=== PATIENT | male | born 1960 | race Caucasian/White ===

== ENCOUNTER 2016-08-29 17:13 | Observation (INO) | payer OTHER ==
[2016-08-29] MEDS ORDERED: ceFAZolin 2 GM/DEXTROSE 100 ML IV ONE (18:00)
[2016-08-29] MEDS ORDERED: MIDAZOLAM 2 MG/2 ML VIAL ONE (18:22)
--- NOTE | 2016-08-29 18:26 | GHP ---
[f rep st] HISTORY AND PHYSICAL DATE OF ADMISSION: 08/29/2016 DATE OF EVALUATION: 08/29/2016 CHIEF COMPLAINT: Cholelithiasis. HISTORY OF PRESENT ILLNESS: The patient is a 56-year-old man, who had burning epigastric pain last n ight that radiated to the side. He was up most of the night. Nothing alleviated the pain. He prese nted to primary care today. An ultrasound was performed, which showed a stone impacted in the gallbl adder neck. He has not had emesis. He denies david-colored stools, jaundice, dark colored, or prurit us. PAST MEDICAL HISTORY: Hypertension. PAST SURGICAL HISTORY: Tonsillectomy, vasectomy. SOCIAL HISTORY: He denies tobacco use. FAMILY HISTORY: Crohn disease in his father. REVIEW OF SYSTEMS: Ten-point review of systems negative, other than HPI. PHYSICAL EXAM: VITAL SIGNS: Reviewed at bedside. GENERAL: Pleasant, well-nourished, well-groomed man lying in bed. HEENT: Normocephalic. No gross hearing deficits. Mucous membranes moist. Pupil s equal and round. No scleral icterus. LUNGS: Clear to auscultation bilaterally. No increased wor k of breathing. CARDIAC: Regular rate. No peripheral edema. ABDOMEN: Bowel sounds present. Soft . Tender at the right upper quadrant. SKIN: Warm and dry. MUSCULOSKELETAL: Normal nails. IMPRESSION AND PLAN: The patient is a 56-year-old man with cholelithiasis. I will take him to the o perating room for a laparoscopic cholecystectomy. The risks and benefits including, but not limited to, stroke, heart attack, , blood clots, infection, bleeding, damage to surrounding structures s uch as bowel and the bile duct were discussed. He had his questions answered to his satisfaction. /[id number]/MODL
[2016-08-29 18:33] LABS: % IMMATURE GRANULYOCYTES 0.4 % (0.0-1.1); ABSOLUTE IMMATURE GRANULOCYTES 0.05 10^3/uL (0.00-0.10); ADD DIFF? NO; ADD MORPH? NO; ADD SCAN? NO; ATYPICAL LYMPHOCYTE FLAG 0 (0-99); FRAGMENT RBC FLAG 0 (0-99); HEMATOCRIT 45.8 % (40.0-51.0); HEMOGLOBIN 15.9 g/dL (13.7-17.5); LEFT SHIFT FLG 0 (0-99); LIPEMIA HEMOLYSIS FLAG 90 (0-99); MEAN CELL HEMOGLOBIN 30.8 pg (27.9-34.1); MEAN CELL HEMOGLOBIN CONCENTR. 34.7 g/dL (32.4-36.7); MEAN CELL VOLUME 88.8 fL (81.5-99.8); MEAN PLATELET VOLUME 10.1 fL (8.7-11.7); PLATELET CLUMPS FLAG 0 (0-99); PLATELET COUNT 288 10^3/uL (150-400); RED BLOOD CELL COUNT 5.16 10^6/uL (4.40-6.38); RED CELL DISTRIBUTION WIDTH 12.1 % (11.5-15.2)
[2016-08-29] MEDS ORDERED: fentaNYL 250 MCG/5 ML INJ ONE ×2 (18:35→19:06)
[2016-08-29] MEDS ORDERED: PROPOFOL 200 MG/20 ML VIAL ONE (18:35)
[2016-08-29] MEDS ORDERED: BUPIVACAINE 0.5% 30 ML SDV ONE (18:39)
[2016-08-29 18:47] LABS: ALBUMIN 3.8 g/dL (3.5-5.0); BILIRUBIN,TOTAL 1.1 mg/dL (0.1-1.4); BILIRUBIN-CONJUGATED 0.2 mg/dL (0.0-0.5); BILIRUBIN-UNCONJUGATED 0.9 mg/dL (0.0-1.1); TOTAL PROTEIN 6.3 g/dL (6.3-8.2)
[2016-08-29] MEDS ORDERED: SKIN ADHESIVE (DERMABOND) 1 EACH TP ONE (19:28)
[2016-08-29] MEDS ORDERED: ROCURONIUM 50 MG/5 ML VIAL ONE (19:33)
--- NOTE | 2016-08-29 19:56 | GOP ---
[f rep st] OPERATIVE REPORT DATE OF OPERATION: 08/29/2016 SURGEON: Irena Rose MD ANESTHESIA: General. ANESTHESIOLOGIST: Dr. Immanuel Clayton. PREOPERATIVE DIAGNOSIS: Cholelithiasis. POSTOPERATIVE DIAGNOSIS: Acute cholecystitis with cholelithiasis. PROCEDURE PERFORMED: Laparoscopic cholecystectomy. FINDINGS: Tense gallbladder with clear bile. SPECIMENS: Gallbladder. ESTIMATED BLOOD LOSS: 50 cc. INDICATIONS: Sebastian Martinez is a 56-year-old man who woke up with burning in his abdomen. He had an u ltrasound that showed an impacted gallstone. DESCRIPTION OF PROCEDURE: Sebastian was brought into the operating room, placed supine on the table, and general anesthesia was administered. His abdomen was prepped and draped in the usual sterile fashio n. I infiltrated all sites with 0.5% Marcaine prior to making incisions. I elevated his umbilicus. I made a thee and I inserted the Veress needle. It passed the hanging drop test. His abdomen insuf flated easily to a pressure of 15 mmHg. I placed a 5 mm trocar with a camera at this site. There we re no injuries from Veress needle placement. Under direct vision, I placed a 10 mm subxiphoid trocar and two 5 mm trocars along the right costal margin. I elevated his gallbladder cephalad. It was ex tremely tense and hard to grasp. I placed the needle into the gallbladder and had return of 30 cc of clear fluid. I was then able to lift the gallbladder cephalad and laterally to expose the triangle of Calot. I skeletonized the cystic artery and the cystic duct so that they were the only 2 structur es directly entering the gallbladder. They were each clipped toward the gallbladder, doubly clipped distally, and transected with scissors. The gallbladder was removed from the gallbladder fossa with electrocautery and placed in an EndoCatch bag. It was removed via the 10 mm trocar. I examined the gallbladder fossa. There was a large bleeder on the fossa. Hemostasis was achieved with electrocaut suhail. Suction irrigation was performed. Hemostasis was again inspected, and there were no further is sues. The ports were removed under direct vision. The abdomen was allowed to desufflate. The fasci a at the 10 mm trocar site was closed with 0 Vicryl. Skin closed with 4-0 Monocryl. Dermabond appli ed. He was awakened in the operating room, extubated, transferred to PACU in stable condition. /[id number]/MODL
[2016-08-29] MEDS ORDERED: ONDANSETRON 4 MG/2 ML VIAL IVP PRN (21:17)
[2016-08-29] MEDS ORDERED: HYDROCODONE/APAP 5/325 TAB PO PRN (21:18)
[2016-08-30 08:48] VITALS: BP 129/77; PULSE 88; RESP 18; TEMP 98.4; O2SAT 92
--- NOTE | 2016-08-30 08:56 | SOAPPROG ---
[id number]. May shower. Seen with Dr. Rose S: Feeling well. No worsening symptoms overnight. Eating without difficulty O: walking in hallway, comfortable, NAD No increased WOB +BS, soft, mildly distended, tender around incisions Objective: Vital Signs Temp Pulse Resp BP Pulse Ox 36.9 C 88 18 129/77 H 92 08/30/16 08:47 08/30/16 08:47 08/30/16 08:47 08/30/16 08:47 08/30/16 08:47 Laboratory Results 08/29/16 18:20 08/29/16 08/30/16 08/31/16 05:59 05:59 05:59 Intake Total 1850 Output Total 50 Balance 1800 ICD10 Worksheet Patient Problems: Problems Problem Status Diagnosed Chronic calculous cholecystitis Acute - ICD10 Problem Qualifiers (1) Chronic calculous cholecystitis
== END 2016-08-30 12:40 | disposition home or self-care (01) ==
LOC: FSGY 17:13 → F3E 22:47 → F1N 23:30
PROVIDERS: ADMIT Surgery; ATTEND Surgery
PROC: 0FT44ZZ Resection of Gallbladder, Percutaneous Endoscopic Approach (ICD-10-PCS; principal; 2016-08-29 19:00)
DX: K80.00 Calculus of gallbladder with acute cholecystitis without obstruction (principal); I10 Essential (primary) hypertension
CPT/HCPCS: 47562; G0378; J0690; J2250; J2704; J3010

== ENCOUNTER → 2016-08-29 | Outpatient (CLI) | payer OTHER ==
--- NOTE | 2016-08-29 15:11 | US ---
Right Upper Quadrant Abdominal Sonogram History: Possible gallstones, RUQ pain Findings: There is a single large, immobile, gallstone in the gallbladder. There is no gallbladder wa ll thickening or pericholecystic fluid. The liver, right kidney, pancreas, and common duct are normal . There is no ascites. The visualized aorta and IVC are normal. Impression: Cholelithiasis. The large gallstone is likely impacted in the gallbladder neck. Results called to Ev Mehta at 3:09 pm, as requested.
== END ==
LOC: BMCIMAGING 14:13
PROVIDERS: ATTEND Nurse Practitioner Adult Health
DX: K80.20 Calculus of gallbladder without cholecystitis without obstruction (principal)

== ENCOUNTER → 2018-08-24 | Outpatient (CLI) | payer OTHER | LOC: BMCIMAGING 15:39 | PROVIDERS: ATTEND Family Medicine | DX: S99.921A Unspecified injury of right foot, initial encounter (principal) ==